=== PATIENT | male | born 1980 | race Hispanic/Latino ===

== ENCOUNTER 2016-07-15 17:20 | Emergency (ER) | payer OTHER ==
[2016-07-15] MEDS ORDERED: Fentanyl 100 MCG/2 ML VIAL ONE (17:36)
[2016-07-15] MEDS ORDERED: Ondansetron HCl/PF 4 MG/2 ML Vial ONE (17:36)
[2016-07-15] MEDS ORDERED: Ketorolac Tromethamine 30 MG/ML VIAL ONE (17:36)
== END 2016-07-15 18:18 | disposition home or self-care (01) ==
LOC: NAV ERS 17:20
DX: R51 Headache (principal); E78.5 Hyperlipidemia, unspecified; F17.210 Nicotine dependence, cigarettes, uncomplicated; Z79.899 Other long term (current) drug therapy
CPT/HCPCS: 96374; 96375; J1885; J2405; J3010